=== PATIENT | male | born 1990 | race Hispanic/Latino ===

== ENCOUNTER 2023-01-23 09:41 | Emergency (ER) | payer OTHER, SELFPAY ==
[2023-01-23] VITALS (8 sets, daily range): BP systolic 111–132; BP diastolic 58–89; PULSE 52–60; RESP 15–16; TEMP 36.7; O2SAT 97–100
--- NOTE | ~2023-01-23 | CT_ITS ---
Non-contrast Head CT History: Headache Technique: Axial non-contrast imaging of the brain was performed. Dose reduction technique was used on this scan by utilizing automated exposure control and iterative reconstruction technique. The dose -length product (DLP) was 605.33 mGy-cm. Findings: There is no evidence of intracranial hemorrhage, mass lesion, or acute infarct. Brain par enchyma appears normal. The ventricles and subarachnoid spaces are normal in size. The calvarium ap pears normal. The visualized paranasal sinuses and mastoid air cells are clear. Impression: No significant abnormality seen. Reviewed, dictated and finalized at location . NG SUPERVISOR Impression: No significant abnormality seen.
--- NOTE | 2023-01-23 09:43 | ECG_ITS ---
Measurements Intervals [place] Rate: 57 P: 34 PA: 133 QRS: 39 QRSD: 96 T: -3 QT: 394 QTc: 386 Interpretive Statements SINUS BRADYCARDIA WITH SINUS ARRHYTHMIA BORDERLINE ST-T WAVE ABNORMALITY- INFERIOR LEADS BASELINE ARTIFACT- I, II, III, AVR, AVL, AVF BORDERLINE ECG NO PREVIOUS ECG AVAILABLE FOR COMPARISON Electronically Signed On 01-23-2023 10:20:43 [facility] [employer] [employer] by Jeanmarie Estrada D.O.
--- NOTE | 2023-01-23 09:52 | ED.DIZZY ---
HPI - Dizziness General Chief Complaint: Dizziness Stated Complaint: headache, dizziness Time Seen by Provider: 01/23/23 09:43 History of Present Illness HPI Narrative: Patient is Sami speaking. 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 Patient is a 32-year-old male with history of ease and migraines here with a headache and dizziness. He states that yesterday while he was driving he began having a pressure sensation on the top of his head as well as in his left eye. He states that he proceeded to go home and then go to work today despite the pain. He denies any exacerbating or alleviating factors. At work he had multiple episodes of dizziness, he describes feeling as though he may pass out. He denies any loss of consciousness. He states that he continues to have a pressure-like sensation which is on the top of his head, notes that this feels quite different than his prior migraines which are usually quite severe. He notes worsening near vision over the last 1-2 months but nothing new today. He denies any numbness or weakness in his arms or legs. He does note some tingling sensation which is present in his right upper extremity which also began yesterday. He denies any cough, congestion, fever, chills. No trauma. Related Data Allergies Allergy/AdvReac Type Severity Reaction Status Date / Time No Known Allergies Allergy Verified 01/23/23 09:42 Review of Systems Review of Systems: All systems reviewed & are unremarkable except as noted in HPI and below Exam Narrative: GENERAL: Well-appearing, well-nourished, and in no acute distress. HEAD: Normocephalic, atraumatic. EYES: PERRLA and EOMI. ENT: Nares clear. Mucous membranes moist. NECK: Supple. CHEST: Clear to auscultation. No respiratory distress. HEART: Regular rate and rhythm. Normal peripheral pulses. ABDOMEN: Soft, nontender, nondistended. EXTREMITIES: Normal range of motion. No edema. SKIN: Warm, dry, no rash. NEURO: Alert and oriented x3. No upper lower extremity drift, no sensory deficit in upper or lower extremities, no facial droop, normal sensation in the face, pupils equal, round, reactive, no visual field deficits, extraocular movements intact, no nystagmus appreciated. PSYCH: Normal mood and affect. Course Course Emergency Course: Chart review performed. No prior visits in our system. Triage vitals normal. Patient is a 32-year-old male here with a headache and dizziness/lightheadedness. Symptoms began yesterday while driving. They do seem to be of a different nature than his normal headaches, will do CT head to evaluate for possible intracranial abnormality to be causing this new type of headache. He describes that his migraine headaches are usually much more severe than what this is now, I do not believe that this is a worse headache of life/thunderclap headache due to description of pain. Intracranial hemorrhage unlikely due to lack of neurologic deficits. Triage lab work has been ordered for dizziness. Migraine cocktail ordered. Will reevaluate. Lab work and imaging reviewed. CBC and CMP unremarkable. CT brain negative. Patient feeling much better after migraine cocktail. Asymptomatic on re-evaluation. The results of pertinent diagnostic studies and exam findings were discussed. The patient?s provisional diagnosis and plan of care were discussed with the patient and present family. The patient and/or present family expressed understanding of the diagnosis and plan. The nurse was instructed to provide written instructions and appropriate follow-up information. The patient understands their need and responsibility to obtain additional follow-up as instructed. The risks of medications administered and prescribed were discussed with the patient and family present. Vital Signs Vital signs: Vital Signs Temperature 98.0 F 01/23/23 09:49 Pulse Rate 52 L 01/23/23 09:49 Respiratory Rate 16 01/23/23 09:49 Blood Pressure 132/89 01/23/23
[2023-01-23 10:05] LABS: Basophils Percent Auto 0.2 % (0.2-1.2); Eosinophils Absolute Auto 0.1 K/mm3 (0-0.3); Eosinophils Percent Auto 2.3 % (0-4.4); Hematocrit 43.8 % (42.0-52.0); Hemoglobin 14.8 g/dL (14.0-18.0); Immature Granulocyte Absolute 0.02 K/mm3 (0.00-0.031); Immature Granulocyte Percent A 0.4 % (0-0.5); Lymphocytes Absolute Auto 2.15 K/mm3 (0.9-3.2); Lymphocytes Percent Auto 38.8 % (18.3-44.2); Mean Corpuscular HGB Conc 33.8 g/dl (32-36); Mean Corpuscular Hemoglobin 30.1 pg (26-34); Mean Corpuscular Volume 89.2 fl (80-100); Mean Platelet Volume 11.6 fl (7.4-10.4); Monocytes Absolute Auto 0.5 K/mm3 (0.1-0.6); Monocytes Percent Auto 8.8 % (2.6-8.5); Neutrophils Absolute Auto 2.7 K/mm3 (1.3-6.7); Neutrophils Percent Auto 49.5 % (45.5-73.1); Platelet Count Result 207 k/mm3 (150-375); Red Blood Count 4.91 M/mm3 (4.6-6.20); Red Cell Distribution Width 12.3 % (11.5-14.5); White Blood Count 5.5 K/mm3 (4.5-10.0)
[2023-01-23 10:15] LABS: Alanine Aminotransferase 28 U/L (6-50); Albumin Level 4.4 g/dL (3.5-5.1); Alkaline Phosphatase 59 U/L (38-126); Anion Gap 10 mmol/L (8-16); Aspartate Amino Transferase 26 U/L (17-59); Bilirubin,Total 0.6 mg/dL (0.2-1.3); Blood Urea Nitrogen 12 mg/dL (9-20); Calcium 9.2 mg/dL (8.4-10.2); Carbon Dioxide 22 mmol/L (22-30); Chloride 106 mmol/L (98-107); Estimated CRCL calculation 114 ml/min; Estimated Glomerular Filt Rate > 60; Glucose 91 mg/dL (65-110); Sodium 138 mmol/L (137-145)
[2023-01-23] MEDS: ACETAMINOPHEN 500 MG TABLET 1000 MG PO (10:51)
[2023-01-23] MEDS: diphenhydrAMINE HCl INJ 50 MG/ML VIAL 25 MG IV PUSH (10:52)
[2023-01-23] MEDS: SODIUM CHLORIDE 0.9% IV 1,000 ML 999 ML IV CONT (10:53)
[2023-01-23] MEDS: METOCLOPRAMIDE HCL INJ 10 MG/2 ML VIAL IV PUSH (10:55)
[2023-01-23] MEDS: KETOROLAC 15 MG/ML VIAL (*BKC) IV PUSH (12:30)
== END 2023-01-23 13:50 | disposition home or self-care (01) ==
PROVIDERS: Emergency Provider Student in an Organized Health Care Education/Training Program
DX: R51.9 Headache, unspecified (principal); R42 Dizziness and giddiness; R94.31 Abnormal electrocardiogram [ECG] [EKG]; R00.1 Bradycardia, unspecified
CPT/HCPCS: 36415; 70450; 80053; 85025; 93005; 96361; 96374; 96375; 99284; A9270; J1200; J1885; J2765; J7030